=== PATIENT | female | born 1955 | race Caucasian/White ===

== ENCOUNTER → 2016-08-17 | Outpatient (CLI) | payer OTHER | END | disposition home or self-care (01) | LOC: CDC 14:04 | DX: R94.31 Abnormal electrocardiogram [ECG] [EKG] (principal); M25.512 Pain in left shoulder; M19.012 Primary osteoarthritis, left shoulder; M75.122 Complete rotator cuff tear or rupture of left shoulder, not specified as traumatic | CPT/HCPCS: 93000 ==

== ENCOUNTER → 2017-03-17 | Outpatient (CLI) | payer OTHER | END | disposition home or self-care (01) | LOC: CDC 14:43 | DX: Z01.810 Encounter for preprocedural cardiovascular examination (principal); M25.531 Pain in right wrist; G56.01 Carpal tunnel syndrome, right upper limb; M67.431 Ganglion, right wrist; R94.31 Abnormal electrocardiogram [ECG] [EKG] | CPT/HCPCS: 93000 ==

== ENCOUNTER 2017-05-28 13:28 | Emergency (ER) | payer SELFPAY ==
[~2017-05-28] VITALS: Ht 167.6 cm; Wt 108.1 kg
[2017-05-28 15:28] LABS: HEMATOCRIT 43.3 % (36.0-46.0); HEMOGLOBIN 15.1 G/DL (11.9-15.5); MCH 31.5 PG (29.0-34.0); MCHC 34.9 G/DL (30.0-36.0); MCV 90.2 FL (83-99); PLATELET COUNT 307 K/uL (156-360); RBC DIS.WIDTH-CV 12.2 % (11.8-14.6); RBC DIS.WIDTH-SD 40.4 % (39-53); WHITE BLOOD COUNT 12.7 K/uL (4.1-10.2)
[2017-05-28 15:35] LABS: ALBUMIN 4.5 g/dL (3.2-4.8); CHLORIDE 105 mEq/L (99-109); SODIUM 140 mEq/L (136-147)
[2017-05-28 15:37] LABS: GLUCOSE 129 mg/dL (70-99); TOTAL PROTEIN 7.7 g/dL (6.4-8.3)
[2017-05-28 15:39] LABS: TOTAL BILIRUBIN 0.6 mg/dL (0.0-1.0)
[2017-05-28 15:41] LABS: ALKALINE PHOSPHATASE 51 IU/L (3-129); CREATININE 0.8 mg/dL (0.6-1.3); GFR ESTIMATE (CALCULATED) > 59 mL/min/
[2017-05-28 15:42] LABS: UREA NITROGEN (BUN) 15 mg/dL (9-23)
[2017-05-28 15:43] LABS: AST (GOT) 23 IU/L (2-34)
[2017-05-28 15:44] LABS: ALT (GPT) 35 IU/L (3-49)
[2017-05-28 20:05] LABS: APPEARANCE CLOUDY ((CLEAR)); BILIRUBIN NEGATIVE; BLOOD SMALL; COLOR YELLOW ((YELLOW)); GLUCOSE (STRIP) NEGATIVE; KETONES 5; LEUKOCYTES NEGATIVE; NITRITE NEGATIVE; PROTEIN (STRIP) 100; SPECIFIC GRAVITY 1.031 (1.000-1.030); UROBILINOGEN 0.2 MG/DL (0.2-1.0)
[2017-05-28 20:37] LABS: AMORPHOUS PHOSPHATE CRYSTALS 3+; BACTERIA RARE /HPF; EPITHELIAL CELLS RARE /HPF; MUCUS NONE SEEN /LPF; RED BLOOD CELLS RARE /HPF (0-5); UCUL ADDED? NO; WHITE BLOOD CELLS RARE /HPF (0-5)
[2017-05-28] MEDS ORDERED: NORCO 10/3251 TABLET PO (22:58)
[2017-05-28] MEDS ORDERED: MOTRIN800 MG PO (22:58)
[2017-05-29 00:38] VITALS: BP 144/79
== END 2017-05-29 00:41 | disposition home or self-care (01) ==
LOC: EME 13:28
DX: N83.201 Unspecified ovarian cyst, right side (principal); D25.9 Leiomyoma of uterus, unspecified; I10 Essential (primary) hypertension
CPT/HCPCS: 74177; 76856; 80053; 81003; 83605; 85027; 93975; 99281; 99285; J2405; J3010; J7030

== ENCOUNTER 2017-07-14 21:12 | Inpatient (IN) | payer OTHER ==
[~2017-07-14] VITALS: Ht 167.6 cm; Wt 108.9 kg
[~2017-07-14 21:12] MED LIST: ERGOCALCIF50000 UNIT PO; HYDROCHLOROTHIA25 MG PO; MOTRIN800 MG PO; MULTI-VITAMIN1 EAC3 PO; NORCO 10/3251 TABLET PO; PROTONIX40 MG PO; SYNTHROID75 MCG PO; ULTRAM50 MG PO; ZESTRIL10 MG PO
[2017-07-15 17:46] VITALS: BP 161/84
[2017-07-15 19:57] LABS: HEMATOCRIT 40.1 % (36.0-46.0); HEMOGLOBIN 13.4 G/DL (11.9-15.5); MCH 30.4 PG (29.0-34.0); MCHC 33.4 G/DL (30.0-36.0); MCV 90.9 FL (83-99); PLATELET COUNT 314 K/uL (156-360); RBC DIS.WIDTH-CV 12.4 % (11.8-14.6); RBC DIS.WIDTH-SD 41.4 % (39-53); RED BLOOD COUNT 4.41 M/uL (3.80-5.20); WHITE BLOOD COUNT 13.6 K/uL (4.1-10.2)
[2017-07-15 20:20] LABS: CHLORIDE 102 MEQ/L (99-109); CREATININE 0.9 MG/DL (0.6-1.3); GFR ESTIMATE (CALCULATED) > 59 mL/min/; GLUCOSE 178 mg/dL (70-99); POTASSIUM 3.5 MEQ/L (3.7-5.4); SODIUM 137 MEQ/L (136-147); UREA NITROGEN (BUN) 10 mg/dL (9-23)
[2017-07-15 20:22] VITALS: BP 142/86
[2017-07-16 00:29] VITALS: BP 117/69
[2017-07-16 03:20] VITALS: BP 113/61
[2017-07-16 07:25] VITALS: BP 129/68
[2017-07-16 07:42] LABS: HEMATOCRIT 34.9 % (36.0-46.0); HEMOGLOBIN 11.7 G/DL (11.9-15.5); MCH 30.6 PG (29.0-34.0); MCHC 33.5 G/DL (30.0-36.0); MCV 91.4 FL (83-99); PLATELET COUNT 313 K/uL (156-360); RBC DIS.WIDTH-CV 12.5 % (11.8-14.6); RBC DIS.WIDTH-SD 41.6 % (39-53); RED BLOOD COUNT 3.82 M/uL (3.80-5.20); WHITE BLOOD COUNT 10.2 K/uL (4.1-10.2)
[2017-07-16 08:10] LABS: CHLORIDE 101 MEQ/L (99-109); CREATININE 0.9 MG/DL (0.6-1.3); GFR ESTIMATE (CALCULATED) > 59 mL/min/; GLUCOSE 142 mg/dL (70-99); SODIUM 136 MEQ/L (136-147); UREA NITROGEN (BUN) 12 mg/dL (9-23)
[2017-07-16 08:11] LABS: POTASSIUM 4.4 MEQ/L (3.7-5.4)
[2017-07-16] MEDS ORDERED: TRAMADOL HCL50 MG PO (09:04)
[2017-07-16 12:02] VITALS: BP 122/69
[2017-07-16 16:24] VITALS: BP 105/58
[2017-07-16 20:51] VITALS: BP 117/58
[2017-07-17 00:26] VITALS: BP 148/72
[2017-07-17 03:43] VITALS: BP 130/67
[2017-07-17 07:10] LABS: HEMATOCRIT 32.4 % (36.0-46.0); HEMOGLOBIN 10.7 G/DL (11.9-15.5); MCH 30.3 PG (29.0-34.0); MCV 91.8 FL (83-99); PLATELET COUNT 262 K/uL (156-360); RBC DIS.WIDTH-CV 12.8 % (11.8-14.6); RBC DIS.WIDTH-SD 42.5 % (39-53); RED BLOOD COUNT 3.53 M/uL (3.80-5.20); WHITE BLOOD COUNT 8.5 K/uL (4.1-10.2)
[2017-07-17 07:25] VITALS: BP 125/61
[2017-07-17 07:34] LABS: CHLORIDE 101 MEQ/L (99-109); GFR ESTIMATE (CALCULATED) > 59 mL/min/; GLUCOSE 106 mg/dL (70-99); POTASSIUM 3.9 MEQ/L (3.7-5.4); SODIUM 139 MEQ/L (136-147); UREA NITROGEN (BUN) 14 mg/dL (9-23)
== END 2017-07-17 10:20 | disposition home or self-care (01) | DRG 743 ==
LOC: ENRESERV 21:12 → 2SOUTH 07-15 12:01 → ENRESERV 07-15 15:39 → 2EASTP 07-15 17:38
PROVIDERS: Obstetrics & Gynecology Gynecologic Oncology
PROC: 0UT20ZZ Resection of Bilateral Ovaries, Open Approach (ICD-10-PCS; principal; 2017-07-15)
PROC: 0UT70ZZ Resection of Bilateral Fallopian Tubes, Open Approach (ICD-10-PCS; principal; 2017-07-15)
PROC: 0UT90ZZ Resection of Uterus, Open Approach (ICD-10-PCS; principal; 2017-07-15)
DX: D25.9 Leiomyoma of uterus, unspecified (principal); N83.201 Unspecified ovarian cyst, right side; N72 Inflammatory disease of cervix uteri; Z68.38 Body mass index [BMI] 38.0-38.9, adult; R97.1 Elevated cancer antigen 125 [CA 125]; D05.10 Intraductal carcinoma in situ of unspecified breast; Z92.3 Personal history of irradiation; Z87.891 Personal history of nicotine dependence
CPT/HCPCS: 36415; 80048; 81003; 85027; 86850; 86900; 86901; 86920; 88305; 88307; J0131; J0690; J1100; J1170; J1650; J1885; J2250; J2405; J2710; J2765; J3010